=== PATIENT | female | born 1990 | race Caucasian/White ===

== ENCOUNTER 2020-01-19 12:02 | Inpatient (IN) ==
[2020-01-19] MEDS ORDERED: OXYTOCIN 30 UNITS/500 ML BAG IV PRN ×3 (12:21→21:57)
[2020-01-19 12:41] LABS: Hematocrit (blood only) 34.5 % (37-47); Hemoglobin 11.8 g/dL (12.0-16.0); Mean Corpuscular Hemoglobin 29.7 pg (25-34); Mean Corpuscular Volume 86.9 fL (80-100); Mean Platelet Volume 12.2 fL (7.4-10.4); Platelet Count 192 K/uL (130-400); RDW Coefficient of Variation 13.8 % (11.5-14.5); RDW Standard Deviation 43.6 fL (36.4-46.3); Red Blood Count 3.97 M/uL (4.2-5.4); White Blood Count 9.13 K/uL (4.8-10.8)
--- NOTE | 2020-01-19 12:46 | History & Physical Report ---
Date of Service January 19, 2020 Assessment & Plan (1) with history of infertility, antepartum: - heart rate tracing category 2 with moderate variability and accelerations -Rupture of membranes but no uterine activity -Discussed with patient and recommend Pitocin augmentation for rupture of membranes -Pitocin per induction protocol -Anticipate vaginal delivery Admission and Anticipated Discharge Date Admission Date: January 19, 2020 History of Present Illness Chief Complaint: Rupture of membranes Primary Care Provider: Elise Cordero DO The patient is a 29-year-old 1 para 0, EDC of 19 January, at 39+ weeks gestational age, who presents to labor and delivery with spontaneous rupture of membranes. Patient states the membranes ruptured at approximately 0900 hrs. She describes the fluid is light green. She denies contractions. The patient carries a diagnosis of heterozygous factor V Leiden mutation. She had a hematology consult this . Hematology is recommending Lovenox for approximately 2 weeks, longer if the patient has a section. Otherwise the patient has had a benign course. Her blood type is A+, antibody negative, rubella immune, hepatitis B negative, she had a negative cystic fibrosis and SMA screen, negative cell free DNA screen, normal 1 hour Glucola x2, negative third trimester beta strep culture, and a negative COVID screen on 06 January Allergies Allergy/AdvReac Type Severity Reaction Status Date / Time No Known Allergies Allergy Verified 01/13/20 13:40 Home Medications Home Medications Medication Instructions Recorded Confirmed Type prenat.vits,dragan,eix-tayt-zeyax 1 tab PO DAILY 06/18/19 01/19/20 History aspirin 81 mg PO DAILY 01/19/20 01/19/20 History cetirizine [Zyrtec] 10 mg PO DAILY 01/19/20 01/19/20 History diphenhydramine HCl [Benadryl] 25 mg PO ONCE 01/19/20 01/19/20 History Patient History Medical History (Updated 01/04/20 @ 07:43 by Gualberto Ortiz Jr, MD, FACOG) Varicella Family History (Updated 06/18/19 @ 09:33 by Brii Craven) Father Factor V Leiden Brother Factor V Leiden Grandmother (Maternal) Breast cancer Social History (Updated 06/18/19 @ 09:07 by Brii Craven) Smoking Status: Never smoker Hx Alcohol Use: No Hx Substance Use: No Preferred Language: Romanian Communication Ability: Effective 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 Other Information That Helps Us Care for You: No Feels Safe at Home: Yes Safety Concerns: Feels Safe At This Time Physical Exam Constitutional: WD/WN, vitals as above Respiratory: Auscultation: lungs clear to auscultation bilaterally Cardiovascular: RRR, no murmur, no edema Extremities: no calf tenderness Gastrointestinal (Abdomen): Gravid, vertex, positive heart tones, estimated weight of 7-1/2 pounds Genitourinary: Cervix 3 to 4 cm dilated 80% effaced -2 station, fore bag ruptured for light meconium, intrauterine pressure catheter placed Results & Data ([facility]) Vital Signs (Past 12 Hours) Vital Signs Temp Pulse Resp BP 01/19/20 12:18 97.9 F 20 01/19/20 12:11 60 133/77 Coding Level of Care Code None Diagnoses with history of infertility, antepartum O09.00
[2020-01-19 12:58] LABS: Mean Corpuscular Hgb Conc 34.2 g/dL (32-36)
[2020-01-19] MEDS: LACTATED RINGER'S 1,000 ML IV PRN ×3 (13:10→19:45)
[2020-01-19] MEDS ORDERED: fentaNYL citrate 100 MCG/2 ML VIAL ONE ×2 (14:25→21:12)
[2020-01-19] MEDS ORDERED: BUPIVACAINE 0.25% 30 ML VIAL ONE (14:25)
[2020-01-19] MEDS ORDERED: ePHEDrine sulfate 50 MG/ML AMP ONE (14:25)
[2020-01-19] MEDS ORDERED: fentaNYL 2MCG/ML ROPIV 1.25MG/ML 100 ML BAG EPI ONE (14:26)
[2020-01-19] MEDS ORDERED: fentaNYL 2MCG/ML ROPIV 1.25MG/ML 100 ML BAG EPI PRN (14:29)
[2020-01-19] MEDS ORDERED: DiphenhydrAMINE HCL 50 MG/ML VIAL IV PRN (14:29)
[2020-01-19] MEDS ORDERED: ePHEDrine sulfate 50 MG/ML AMP IV PRN ×2 (14:29→21:25)
[2020-01-19] MEDS ORDERED: NALOXONE HCL 0.4 MG/1 ML VIAL/CARP IV PRN (14:29)
[2020-01-19] MEDS ORDERED: ONDANSETRON INJ 2 MG/ML 2 ML VIAL IV PRN (14:29)
[2020-01-19] MEDS ORDERED: NALOXONE HCL 1 MG in SODIUM CHLORIDE 0.9% 1000ML 1,000 ML IV PRN (14:29)
--- NOTE | 2020-01-19 14:29 | Anesthesiology Consultation ---
Date of Service January 19, 2020 Assessment & Plan ASA ASA2 Proposed Anesthesia Anesthesia Type: Labor Epidural Risk / Benefits Reviewed With: PT / POA / Parent / Guardian, Accepts Plan and Informed Consent Obtained History Height/Weight Height: 5 ft 8 in Weight: 105.233 kg Allergies Allergy/AdvReac Type Severity Reaction Status Date / Time No Known Allergies Allergy Verified 01/13/20 13:40 Medications Home Medications Medication Instructions Recorded Confirmed Last Taken prenat.vits,dragan,qly-dyfx-trpkd 1 tab PO DAILY 06/18/19 01/19/20 01/18/20 aspirin 81 mg PO DAILY 01/19/20 01/19/20 01/18/20 cetirizine [Zyrtec] 10 mg PO DAILY 01/19/20 01/19/20 01/18/20 diphenhydramine HCl [Benadryl] 25 mg PO ONCE 01/19/20 01/19/20 01/18/20 Active Medications Generic Name Dose Route Start Last Admin Trade Name Freq PRN Reason Stop Dose Admin Lactated Ringer's 1,000 mls @ 125 mls/hr 01/19/20 12:21 01/19/20 15:07 Lr IV 01/21/20 12:20 125 mls/hr .Q8H PRN Infusion L&D Protocol Protocol Oxytocin 30 units in 500 mls @ 3 mls/hr 01/19/20 13:00 01/19/20 14:25 Pitocin IV 01/21/20 12:59 0.18 units/hr .Q24H PRN 3 mls/hr Labor Induction/Augmentation Titration Protocol 0.18 UNITS/HR Past Medical History Medical History Varicella Exercise / Class Metabolic Activity II 4-5 Yardwork/Stairs/Walk up hill Past Family History Family History Father Factor V Leiden Brother Factor V Leiden Grandmother (Maternal) Breast cancer Past Anesthesia History No Hx of Anesthesia Complications and No Family Hx of Anesthesia Complications History of PONV No Hx of PONV and No Hx of Motion Sickness Social History Smoking Status: Never smoker Hx Alcohol Use: No Hx Substance Use: No Review of Systems denies fever/cough/ colds/ chest pain/ SOB/ CR Constitutional: no fever and no chills Respiratory: no cough and no dyspnea denies CR Cardiovascular: no chest pain and no dyspnea on exertion Physical Exam Vital Signs Last Vital Signs Temp 36.6 C 01/19/20 12:18 Pulse 73 01/19/20 15:06 Resp 18 01/19/20 13:13 BP 130/68 01/19/20 15:06 Pulse Ox 100 01/19/20 15:01 ENMT Mouth: no TMJ abnormality and no dentition abnormality Thyromental Distance: > or= 3.5 Finger Breadths Mallampati Class: II Neck neck extension not limited Respiratory normal respiratory effort; no respiratory distress Auscultation: lungs clear to auscultation bilaterally Cardiovascular Rate/Rhythm: regular rate and regular rhythm Neurologic moves all extremities Psychiatric Orientation: alert and oriented x 3 Testing Laboratory Results 01/19/20 12:28
[2020-01-19] MEDS ORDERED: ACETAMINOPHEN 500 MG TAB PO PRN (15:45)
--- NOTE | 2020-01-19 17:01 | Labor Progress Brief Note ---
Date of Service January 19, 2020 Subjective Reason For Note: Routine Evaluation Assessment & Plan (1) with history of infertility, antepartum: - tracing Cat II - comfortable with epidural - continue pitocin Admission and Anticipated Discharge Date Admission Date: January 19, 2020 Physical Exam Genitourinary: Cervix: Ant lip/(+)1 Results & Data ([facility]) Vital Signs (Past 12 Hours) Vital Signs Temp Pulse Resp BP Pulse Ox 01/19/20 16:56 81 100 01/19/20 16:53 74 113/57 L 01/19/20 16:51 79 99 01/19/20 16:46 78 99 01/19/20 16:41 78 100 01/19/20 16:39 78 112/59 L 01/19/20 16:36 78 100 01/19/20 16:31 85 100 01/19/20 16:26 79 100 01/19/20 16:24 80 119/57 L 01/19/20 16:21 95 H 100 01/19/20 16:16 69 122/69 97 01/19/20 16:11 72 124/69 100 01/19/20 16:06 61 120/65 100 01/19/20 16:02 70 113/67 01/19/20 16:01 79 100 01/19/20 16:00 20 01/19/20 15:56 68 113/71 100 01/19/20 15:52 79 124/76 01/19/20 15:51 80 100 01/19/20 15:46 71 117/65 100 01/19/20 15:42 82 117/73 01/19/20 15:41 86 100 01/19/20 15:36 74 126/64 100 01/19/20 15:31 69 121/67 100 01/19/20 15:30 98.4 F 20 01/19/20 15:26 68 100 01/19/20 15:25 74 117/70 01/19/20 15:21 80 117/66 99 01/19/20 15:16 77 122/64 100 01/19/20 15:11 83 100 01/19/20 15:10 76 133/63 01/19/20 15:08 65 125/62 01/19/20 15:06 77 130/68 100 01/19/20 15:04 71 128/66 01/19/20 15:02 79 136/68 01/19/20 15:01 72 100 01/19/20 15:00 68 143/69 H 01/19/20 14:56 69 147/72 H 100 01/19/20 14:51 62 100 01/19/20 14:46 82 100 01/19/20 14:41 71 100 01/19/20 14:36 59 L 170/81 H 100 01/19/20 13:13 55 L 18 118/71 01/19/20 12:18 97.9 F 20 01/19/20 12:11 60 133/77 Coding Level of Care Code None Diagnoses with history of infertility, antepartum O09.00
--- NOTE | 2020-01-19 17:51 | Labor Progress Brief Note ---
Date of Service January 19, 2020 Subjective Reason For Note: Routine Evaluation Assessment & Plan (1) with history of infertility, antepartum: - tracing Cat II - begin 2nd stage Admission and Anticipated Discharge Date Admission Date: January 19, 2020 Physical Exam Genitourinary: Cervix: complete/(+)1 -(+)2 Results & Data ([facility]) Vital Signs (Past 12 Hours) Vital Signs Temp Pulse Resp BP Pulse Ox 01/19/20 17:46 73 100 01/19/20 17:41 75 100 01/19/20 17:38 68 142/69 H 01/19/20 17:36 70 100 01/19/20 17:31 76 100 01/19/20 17:30 20 01/19/20 17:26 84 99 01/19/20 17:23 69 133/70 01/19/20 17:21 80 100 01/19/20 17:16 75 100 01/19/20 17:11 78 100 01/19/20 17:08 75 155/69 H 01/19/20 17:06 79 100 01/19/20 17:01 98.4 F 84 20 100 01/19/20 16:56 81 100 01/19/20 16:53 74 113/57 L 01/19/20 16:51 79 99 01/19/20 16:46 78 99 01/19/20 16:41 78 100 01/19/20 16:39 78 112/59 L 01/19/20 16:36 78 100 01/19/20 16:31 85 100 01/19/20 16:26 79 100 01/19/20 16:24 80 119/57 L 01/19/20 16:21 95 H 100 01/19/20 16:16 69 122/69 97 01/19/20 16:11 72 124/69 100 01/19/20 16:06 61 120/65 100 01/19/20 16:02 70 113/67 01/19/20 16:01 79 100 01/19/20 16:00 20 01/19/20 15:56 68 113/71 100 01/19/20 15:52 79 124/76 01/19/20 15:51 80 100 01/19/20 15:46 71 117/65 100 01/19/20 15:42 82 117/73 01/19/20 15:41 86 100 01/19/20 15:36 74 126/64 100 01/19/20 15:31 69 121/67 100 01/19/20 15:30 98.4 F 20 01/19/20 15:26 68 100 01/19/20 15:25 74 117/70 01/19/20 15:21 80 117/66 99 01/19/20 15:16 77 122/64 100 01/19/20 15:11 83 100 01/19/20 15:10 76 133/63 01/19/20 15:08 65 125/62 01/19/20 15:06 77 130/68 100 01/19/20 15:04 71 128/66 01/19/20 15:02 79 136/68 01/19/20 15:01 72 100 01/19/20 15:00 68 143/69 H 01/19/20 14:56 69 147/72 H 100 01/19/20 14:51 62 100 01/19/20 14:46 82 100 01/19/20 14:41 71 100 01/19/20 14:36 59 L 170/81 H 100 01/19/20 13:13 55 L 18 118/71 01/19/20 12:18 97.9 F 20 01/19/20 12:11 60 133/77 Coding Level of Care Code None Diagnoses with history of infertility, antepartum O09.00
--- NOTE | 2020-01-19 20:11 | Labor Progress Brief Note ---
Date of Service January 19, 2020 Subjective Reason For Note: Routine Evaluation Assessment & Plan (1) with history of infertility, antepartum: - tracing Cat II - pt getting tired - discussed Operative Vag options - with caput not a vacuum candidate - discussed outlet forceps options - pt would like to continue pushing Admission and Anticipated Discharge Date Admission Date: January 19, 2020 Physical Exam Genitourinary: Cervix: complete/(+)2/BONG Results & Data ([facility]) Vital Signs (Past 12 Hours) Vital Signs Temp Pulse Pulse Resp BP BP Pulse Ox 01/19/20 20:06 117 H 96 01/19/20 20:01 83 98 01/19/20 20:00 18 01/19/20 19:57 92 H 87 L 01/19/20 19:56 91 H 97 01/19/20 19:51 76 97 01/19/20 19:46 94 H 98 01/19/20 19:41 91 H 98 01/19/20 19:39 73 116/58 L 01/19/20 19:36 78 97 01/19/20 19:31 83 96 01/19/20 19:30 18 01/19/20 19:28 92 H 94 01/19/20 19:26 92 H 96 01/19/20 19:23 73 128/58 L 01/19/20 19:21 73 97 01/19/20 19:16 75 98 01/19/20 19:11 97 H 98 01/19/20 19:08 76 127/68 01/19/20 19:06 78 98 01/19/20 19:02 99.7 F H 75 18 122/82 99 01/19/20 19:01 99 H 99 01/19/20 18:56 75 99 01/19/20 18:53 78 122/82 01/19/20 18:51 96 H 98 01/19/20 18:46 77 99 01/19/20 18:45 20 01/19/20 18:41 109 H 97 01/19/20 18:39 93 H 141/73 H 01/19/20 18:36 91 H 98 01/19/20 18:31 89 99 01/19/20 18:26 67 99 01/19/20 18:24 75 126/58 L 01/19/20 18:21 79 100 01/19/20 18:20 98.4 F 20 08/19/20 18:16 84 100 01/19/20 18:11 118 H 98 01/19/20 18:08 118 H 128/64 01/19/20 18:06 82 100 01/19/20 18:01 80 100 20 17:56 77 100 01/19/20 17:54 82 136/93 01/19/20 17:51 89 100 01/19/20 17:46 73 20 100 01/19/20 17:41 75 100 01/19/20 17:38 68 142/69 H 01/19/20 17:36 70 100 01/19/20 17:31 76 100 01/19/20 17:30 20 01/19/20 17:26 84 99 01/19/20 17:23 69 133/70 01/19/20 17:21 80 100 01/19/20 17:16 75 100 01/19/20 17:11 78 100 01/19/20 17:08 75 155/69 H 01/19/20 17:06 79 100 01/19/20 17:01 98.4 F 84 20 100 01/19/20 16:56 81 100 01/19/20 16:53 74 113/57 L 01/19/20 16:51 79 99 01/19/20 16:46 78 99 01/19/20 16:41 78 100 01/19/20 16:39 78 112/59 L 01/19/20 16:36 78 100 01/19/20 16:31 85 100 01/19/20 16:26 79 100 01/19/20 16:24 80 119/57 L 01/19/20 16:21 95 H 100 01/19/20 16:16 69 122/69 97 01/19/20 16:11 72 124/69 100 01/19/20 16:06 61 120/65 100 01/19/20 16:02 70 113/67 01/19/20 16:01 79 100 01/19/20 16:00 20 01/19/20 15:56 68 113/71 100 01/19/20 15:52 79 124/76 20 15:51 80 100 20 15:46 71 117/65 100 20 15:42 82 117/73 01/19/20 15:41 86 100 01/19/20 15:36 74 126/64 100 01/19/20 15:31 69 121/67 100 01/19/20 15:30 98.4 F 20 01/19/20 15:26 68 100 01/19/20 15:25 74 117/70 01/19/20 15:21 80 117/66 99 01/19/20 15:16 77 122/64 100 01/19/20 15:11 83 100 01/19/20 15:10 76 133/63 01/19/20 15:08 65 125/62 01/19/20 15:06 77 130/68 100 01/19/20 15:04 71 128/66 01/19/20 15:02 79 136/68 01/19/20 15:01 72 100 01/19/20 15:00 68 143/69 H 01/19/20 14:56 69 147/72 H 100 01/19/20 14:51 62 100 01/19/20 14:46 82 100 01/19/20 14:41 71 100 01/19/20 14:36 59 L 170/81 H 100 01/19/20 13:13 55 L 18 118/71 01/19/20 12:18 97.9 F 20 01/19/20 12:11 60 133/77 Coding Level of Care Code None Diagnoses with history of infertility, antepartum O09.00
[2020-01-19] MEDS ORDERED: LIDOCAINE/EPINEPHRINE 2% 1:200,000 20 ML SDV ONE (21:17)
[2020-01-19 21:19] LABS: Base Excess Cord Arterial Bld -5.2 mEq/L (-9-1.8); CO2 Cord Arterial Blood 42 mmHg (39.1-73.5); HCO3 Cord Arterial Blood 21 mmol/L (19.7-28.5); PO2 Cord Arterial Blood 27 mmHg (4.1-31.7); pH Cord Arterial Blood 7.31 (7.1-7.38)
[2020-01-19 21:20] LABS: Oxygen Sat Cord Arterial Blood < 60.0 % (<60)
[2020-01-19 21:24] LABS: Base Excess Cord Venous Blood -5.5 mEq/L (-7.7-1.9); Cord Venous Blood HCO3 20 mmol/L (18.4-26.8); Cord Venous Blood PCO2 41 mmHg (30.4-57.2); Cord Venous Blood PO2 27 mmHg (14.1-43.3); Cord Venous Blood pH 7.32 (7.20-7.44); O2 Saturation Cord Venous Bld < 60.0 % (<68)
[2020-01-19] MEDS ORDERED: fentaNYL citrate 100 MCG/2 ML VIAL IV PRN (21:25)
[2020-01-19] MEDS ORDERED: ATROPINE SULFATE 0.1 MG/ML 10ML SYR IV PRN (21:25)
--- NOTE | 2020-01-19 21:35 | Post Operative Brief Note ---
PG Immediate Post Op with CF Date of Surgery January 19, 2020 Pre & Post Diagnosis Operation Date: 01/19/20 21:05 Pre-Op Diagnosis: Vaginal Laceration status post forcep delivery Post-Op Diagnosis: Same as above I identified the patient and participated in the time-out.: Yes Procedure Operation Date: 01/19/20 21:05 1. Right sulcus repair 2. Repair of 2 degree midline laceration <No data on this case meets the specified criteria> Surgeon Gualberto Ortiz Jr, MD, FACOG Trip Rider Ema Estimated Blood Loss 200 Findings See Below (right sulcus tear, with midline 2nd degree laceration, both repaires) Drains Nguyễn Catheter (patent and draining )
--- NOTE | 2020-01-19 21:49 | Delivery Summary ---
Vaginal Delivery Summary Date of Service January 19, 2020 Vaginal Delivery Summary Viable Findings: viable male with Apgars of 8 and 9, delivered by low forcep delivery for maternal exhaustion. Baby delivered over a midline second- degree laceration with right vaginal sulcus tear. Cord blood samples and cord gases obtained. Attempt at repairing sulcus tear in delivery necessitatingroom unsuccessful secondary to visualization transfer to OR for closure. Labor Course: The patient is a 29-year-old 1 para 0, EDC of 19 January, at 39+ weeks gestational age, who presents to labor and delivery with spontaneous rupture of membranes. Patient states the membranes ruptured at approximately 0900 hrs. She describes the fluid is light green. She denies contractions. The patient carries a diagnosis of heterozygous factor V Leiden mutation. She had a hematology consult this . Hematology is recommending Lovenox for approximately 2 weeks, longer if the patient has a section. Otherwise the patient has had a benign course. Her blood type is A+, antibody negative, rubella immune, hepatitis B negative, she had a negative cystic fibrosis and SMA screen, negative cell free DNA screen, normal 1 hour Glucola x2, negative third trimester beta strep culture, and a negative COVID screen on 06 January Upon admission the patient was 3 cm dilated and grossly ruptured. On examination a fore bag was felt which was artificial initially ruptured and an intrauterine pressure catheter was placed. Because of the rupture of membranes she was started on Pitocin per induction protocol. Contractions became regular and the patient became uncomfortable. Anesthesia was consulted and an epidural was placed. The patient progressed to full dilatation and began her second stage. The patient pushed over 2 hours bringing the vertex down to a +2/+3 position in a BONG presentation. At this point the patient became exhausted and was unable to push further. Because of the significant It associated with the second stage a vacuum extraction was not felt to be possible. Verbal consent was obtained from the patient for a forcep delivery. Juanis forceps were placed atraumatic Jose, and with the next contraction the baby was delivered. The cord was clamped and cut and the baby was taken over to the resuscitation stand. Cord gases and cord blood samples were obtained. Inspection of the perineum showed a midline second-degree laceration with a right sulcus tear. A Nguyễn catheter was inserted into the bladder which remained there throughout the repair. An attempt to repair the sulcus tear was tried in the delivery room. Because of the location of the tear good visualization could not be obtained. After multiple attempts I decision was made to terminate the procedure in the delivery room and moved the patient to the OR for repair there. Estimated blood loss for this portion of the delivery 750 cc. Sponge and needle count was correct.
[2020-01-19] MEDS: LACTATED RINGER'S 1,000 ML IV SCH (21:50)
[2020-01-19] MEDS ORDERED: ACETAMINOPHEN 325 MG TAB PO PRN (21:57)
[2020-01-19] MEDS ORDERED: HYDROCORTISONE ACETATE 25 MG SUPP PR PRN (21:57)
[2020-01-19] MEDS ORDERED: SUPERCREAM 0.870% 15 GM JAR EXT PRN (21:57)
[2020-01-19] MEDS ORDERED: ACETAMINOPHEN W/CODEINE #3 1 TAB PO PRN (21:57)
[2020-01-19] MEDS ORDERED: BENZOCAINE 20% AER SPR 82.5 GM CAN EXT PRN (21:57)
[2020-01-19] MEDS ORDERED: DIPHTHERIA/TETANUS/PERTUSSIS 0.5 ML SYR/VIAL IM ONE (21:57)
[2020-01-19 22:13] LABS: Hematocrit (blood only) 26.8 % (37-47); Hemoglobin 9.1 g/dL (12.0-16.0)
--- NOTE | 2020-01-19 22:36 | Anesthesia Procedure Note ---
Date of Service January 19, 2020 Anesthesia Post Epidural Note Vital Signs Vital Signs: Temp Pulse Resp BP Pulse Ox 98.4 F 114 H 18 121/69 100 01/19/20 21:50 01/19/20 22:34 01/19/20 22:10 01/19/20 22:34 01/19/20 22:32 Notes Mental Status: alert / awake / arousable and participated in evaluation Nausea / Vomiting: adequately controlled Pain: adequately controlled Airway Patency, RR, SpO2: stable & adequate BP & HR: stable & adequate Hydration State: stable & adequate Neuraxial Anesthesia: was administered and sensory block is resolving Anesthetic Complications: no major complications apparent and Pt Satisfied with anesthetic care Epidural: Removed without complications and With tip intact
--- NOTE | 2020-01-19 22:37 | Anesthesiology Progress Note ---
Date of Service January 19, 2020 Anesthesia Post Procedure Vital Signs Vital Signs: Temp Pulse Pulse Resp BP BP Pulse Ox 01/19/20 22:34 114 H 121/69 01/19/20 22:32 119 H 100 01/19/20 22:27 108 H 100 01/19/20 22:24 121 H 128/75 01/19/20 22:22 124 H 100 01/19/20 22:17 120 H 100 01/19/20 22:13 107 H 108/65 01/19/20 22:12 114 H 100 01/19/20 22:10 18 01/19/20 22:07 116 H 99 01/19/20 22:02 112 H 100 01/19/20 22:00 18 01/19/20 21:57 105 H 100 01/19/20 21:52 111 H 89/49 L 99 01/19/20 21:50 98.4 F 18 01/19/20 21:47 99 H 98 01/19/20 21:46 98 H 80/41 L 01/19/20 21:45 98 H 78/41 L 01/19/20 20:51 123 H 117/65 01/19/20 20:21 91 H 98 01/19/20 20:16 87 97 01/19/20 20:11 85 97 01/19/20 20:09 78 118/57 L 01/19/20 20:06 117 H 96 01/19/20 20:01 83 98 01/19/20 20:00 18 01/19/20 19:57 92 H 87 L 01/19/20 19:56 91 H 97 01/19/20 19:51 76 97 01/19/20 19:46 94 H 98 01/19/20 19:41 91 H 98 01/19/20 19:39 73 116/58 L 01/19/20 19:36 78 97 01/19/20 19:31 83 96 01/19/20 19:30 18 01/19/20 19:28 92 H 94 01/19/20 19:26 92 H 96 01/19/20 19:23 73 128/58 L 01/19/20 19:21 73 97 01/19/20 19:16 75 98 01/19/20 19:11 97 H 98 01/19/20 19:08 76 127/68 01/19/20 19:06 78 98 08/19/20 19:02 99.7 F H 75 18 122/82 99 01/19/20 19:01 99 H 99 01/19/20 18:56 75 99 01/19/20 18:53 78 122/82 01/19/20 18:51 96 H 98 01/19/20 18:46 77 99 01/19/20 18:45 20 01/19/20 18:41 109 H 97 01/19/20 18:39 93 H 141/73 H 01/19/20 18:36 91 H 98 01/19/20 18:31 89 99 01/19/20 18:26 67 99 01/19/20 18:24 75 126/58 L 01/19/20 18:21 79 100 01/19/20 18:20 98.4 F 20 01/19/20 18:16 84 100 01/19/20 18:11 118 H 98 01/19/20 18:08 118 H 128/64 01/19/20 18:06 82 100 01/19/20 18:01 80 100 01/19/20 17:56 77 100 01/19/20 17:54 82 136/93 01/19/20 17:51 89 100 01/19/20 17:46 73 20 100 01/19/20 17:41 75 100 01/19/20 17:38 68 142/69 H 01/19/20 17:36 70 100 01/19/20 17:31 76 100 01/19/20 17:30 20 01/19/20 17:26 84 99 01/19/20 17:23 69 133/70 01/19/20 17:21 80 100 01/19/20 17:16 75 100 20 17:11 78 100 01/19/20 17:08 75 155/69 H 01/19/20 17:06 79 100 01/19/20 17:01 98.4 F 84 20 100 01/19/20 16:56 81 100 20 16:53 74 113/57 L 01/19/20 16:51 79 99 01/19/20 16:46 78 99 20 16:41 78 100 01/19/20 16:39 78 112/59 L 01/19/20 16:36 78 100 01/19/20 16:31 85 100 01/19/20 16:26 79 100 01/19/20 16:24 80 119/57 L 01/19/20 16:21 95 H 100 01/19/20 16:16 69 122/69 97 01/19/20 16:11 72 124/69 100 01/19/20 16:06 61 120/65 100 01/19/20 16:02 70 113/67 01/19/20 16:01 79 100 01/19/20 16:00 20 01/19/20 15:56 68 113/71 100 01/19/20 15:52 79 124/76 01/19/20 15:51 80 100 01/19/20 15:46 71 117/65 100 01/19/20 15:42 82 117/73 01/19/20 15:41 86 100 01/19/20 15:36 74 126/64 100 01/19/20 15:31 69 121/67 100 01/19/20 15:30 98.4 F 20 01/19/20 15:26 68 100 01/19/20 15:25 74 117/70 01/19/20 15:21 80 117/66 99 01/19/20 15:16 77 122/64 100 01/19/20 15:11 83 100 01/19/20 15:10 76 133/63 01/19/20 15:08 65 125/62 01/19/20 15:06 77 130/68 100 01/19/20 15:04 71 128/66 01/19/20 15:02 79 136/68 01/19/20 15:01 72 100 01/19/20 15:00 68 143/69 H 01/19/20 14:56 69 147/72 H 100 01/19/20 14:51 62 100 01/19/20 14:46 82 100 01/19/20 14:41 71 100 01/19/20 14:36 59 L 170/81 H 100 01/19/20 13:13 55 L 18 118/71 01/19/20 12:18 97.9 F 20 01/19/20 12:11 60 133/77 Transfer of Care Handoff Completed per policy Notes Mental Status: alert / awake / arousable and participated in evaluation Nausea / Vomiting: adequately controlled Pain: adequately controlled Airway Patency, RR, SpO2: stable & adequate BP & HR: stable & adequate Hydration State: stable & adequate Neuraxial Anesthesia: was administered and sensory block is resolving Anesthetic Complications: no major complications apparent and Pt Satisfied with anesthetic care
[2020-01-19] MEDS: IBUPROFEN 600 MG TAB PO PRN (23:08)
--- NOTE | 2020-01-20 02:00 | Operative Report (OR) ---
DATE OF OPERATION: 01/19/2020 PREOPERATIVE DIAGNOSIS: Vaginal laceration, status post forceps delivery. POSTOPERATIVE DIAGNOSES: Vaginal laceration, status post forceps delivery. PROCEDURES PERFORMED: 1. Repair of right sulcus tear. 2. Repair of midline second-degree laceration. SURGEON: Gualberto Ortiz MD ETH[employer] MAINTENANCE MECHANIC: Dr. Haley Boo. ANESTHESIA: Epidural. FINDINGS: Exam under anesthesia revealed a sulcus tear extending up to the right upper fornix lateral to the cervix. This was repaired with a running 2-0 Vicryl suture. Midline laceration was repaired with 4-0 and 2-0 Vicryl. Estimated blood loss 200 mL. PROCEDURE NOTE: The patient was taken to the operating room and under epidural anesthesia, was placed in the dorsal lithotomy position. Nguyễn catheter was already present in the bladder and the vulva was prepped with Betadine. Using retractors, the sulcus tear was visualized. The apex was identified and it was ligated with a 2-0 Vicryl suture. This was then run down to the vaginal introitus closing the defect. The midline second-degree laceration was then repaired with 2-0 and 4-0 Vicryl closing the defect. Vaginal packing was placed. The patient was taken out of dorsal lithotomy and to recovery room in satisfactory condition. I attest to the content of the Intraoperative Record and any orders documented therein. Any exception s are noted below.
[2020-01-20] MEDS: IBUPROFEN 600 MG TAB PO PRN ×4 (04:45→20:40)
[2020-01-20 05:48] LABS: Hematocrit (blood only) 24.6 % (37-47); Hemoglobin 8.4 g/dL (12.0-16.0); Mean Corpuscular Hemoglobin 30.4 pg (25-34); Mean Corpuscular Hgb Conc 34.1 g/dL (32-36); Mean Corpuscular Volume 89.1 fL (80-100); Platelet Count 166 K/uL (130-400); RDW Coefficient of Variation 13.9 % (11.5-14.5); RDW Standard Deviation 45.7 fL (36.4-46.3); Red Blood Count 2.76 M/uL (4.2-5.4); White Blood Count 23.25 K/uL (4.8-10.8)
[2020-01-20] MEDS: LACTATED RINGER'S 1,000 ML IV SCH (06:17)
--- NOTE | 2020-01-20 06:55 | Obstetrical Progress Note ---
Date of Service <Yolanda Montalvo DO - Last Filed: 01/20/20 07:57> January 20, 2020 Assessment & Plan <Yolanda Montalvo DO - Last Filed: 01/20/20 07:57> (1) Normal course: - PNL: Rh pos, RI, GBS neg, COVID neg - Feels well today. - Pain well controlled with ibuprofen 600mg Q4H PRN - Routine pp care -- OOB, ambulation, diet progression as tolerated - H/H 8.4/24.6 today. Will plan to start Iron po daily - After discharge will have 6 week follow-up with Dr. Ortiz. (2) Factor 5 Leiden mutation, heterozygous: Lovenox x2 weeks pp as recommended by hematology. Subjective <Yolanda Montalvo DO - Last Filed: 01/20/20 07:57> Amy Schmitt is a 29 y/o female who is PPD #1 following forceps assisted vaginal delivery due to maternal exhaustion during 2nd stage of labor at 39+ weeks. She reports feeling well overall this morning. Some abdominal cramping, described as a discomfort sensation, and 4/10 pain well managed on analgesics. Pt still has a urinary catheter in place. Tolerating meals overnight without nausea or vomiting. Patient has not yet been OOB. + passing gas and - bowel movement. Pt has packing in place in the vagina due to sulcus tear s/p forceps delivery. She is currently . To note: patient has Factor V Leiden and it has been recommended that she be on Lovenox x2 weeks pp per hematology. Review of Systems Denies fever or chills. Denies shortness of breath or cough. Denies chest pain. Denies breast pain. Denies dysuria. Denies leg pain or leg swelling. Denies headache or changes in vision. Physical Exam <Yolanda Montalvo DO - Last Filed: 01/20/20 07:57> General: Alert, oriented. No acute distress. Cardiac: Regular rate and rhythm. No murmurs. Respiratory: Clear to auscultation bilaterally a/p, no wheezes/rales/rhonchi. No increased work of breathing. Symmetrical chest rise. No respiratory distress. Abdomen: Soft, nontender, nondistended. Bowel sounds present. : Urinary catheter in place. Uterus: Uterine fundus firm, palpable 2 cm below umbilicus. Lower Extremities: SCDs in place. No lower extremity edema or swelling. No deep calf pain. Louisa's negative bilaterally. Results & Data ([facility]) <Yolanda Montalvo DO - Last Filed: 01/20/20 07:57> Vital Signs (Past 12 Hours) Vital Signs Temp Pulse Pulse Resp BP BP Pulse Ox 01/20/20 04:45 36.6 C 75 15 117/76 99 01/20/20 00:35 36.9 C 92 H 16 108/72 99 01/19/20 23:58 94 H 115/63 01/19/20 23:57 96 H 99 01/19/20 23:52 115 H 98 01/19/20 23:50 18 01/19/20 23:47 103 H 99 01/19/20 23:42 112 H 99 01/19/20 23:37 110 H 99 01/19/20 23:32 111 H 99 01/19/20 23:27 89 99 01/19/20 23:22 110 H 100 01/19/20 23:20 18 01/19/20 23:17 113 H 99 01/19/20 23:12 115 H 98 01/19/20 23:07 108 H 98 01/19/20 23:02 111 H 100 01/19/20 22:57 113 H 100 01/19/20 22:54 107 H 116/66 01/19/20 22:52 104 H 100 01/19/20 22:50 18 01/19/20 22:47 111 H 100 01/19/20 22:44 103 H 123/67 01/19/20 22:42 96 H 100 01/19/20 22:40 18 01/19/20 22:37 119 H 100 01/19/20 22:34 114 H 121/69 01/19/20 22:32 119 H 100 01/19/20 22:30 18 01/19/20 22:27 108 H 100 01/19/20 22:24 121 H 128/75 01/19/20 22:22 124 H 100 01/19/20 22:20 18 01/19/20 22:17 120 H 100 01/19/20 22:13 107 H 108/65 01/19/20 22:12 114 H 100 01/19/20 22:10 18 01/19/20 22:07 116 H 99 01/19/20 22:02 112 H 100 01/19/20 22:00 18 01/19/20 21:57 105 H 100 01/19/20 21:52 111 H 89/49 L 99 01/19/20 21:50 36.9 C 18 01/19/20 21:47 99 H 98 01/19/20 21:46 98 H 80/41 L 01/19/20 21:45 98 H 78/41 L 01/19/20 20:51 123 H 117/65 01/19/20 20:21 91 H 98 01/19/20 20:16 87 97 01/19/20 20:11 85 97 01/19/20 20:09 78 118/57 L 01/19/20 20:06 117 H 96 01/19/20 20:01 83 98 01/19/20 20:00 18 01/19/20 19:57 92 H 87 L 01/19/20 19:56 91 H 97 01/19/20 19:51 76 97 01/19/20 19:46 94 H 98 01/19/20 19:41 91 H 98 01/19/20 19:39 73 116/58 L 01/19/20 19:36 78 97 01/19/20 19:31 83 96 01/19/20 19:30 18 01/19/20 19:28 92 H 94 01/19/20 19:26 92 H 96 01/19/20 19:23 73 128/58 L 01/19/20 19:21 73 97 01/19/20 19:16 75 98 01/19/20 19:11 97 H 98 01/19/20 19:08 76 127/68 01/19/20 19:06 78 98 01/19/20 19:02 37.6 C H 75 18 122/82 99 01/19/20 19:01 99 H 99 01/19/20 18:56 75 99 01/19/20 18:53 78 122/82 01/19/20 18:51 96 H 98 Laboratory Results H/H 8.4/24.6 at 0527 this AM. <Gualberto Ortiz Jr, MD, FACOG - Last Filed: 01/20/20 08:18> Co-Signing Physician Notes Resident Physician Supervision Note: I was present with Dr. Montalvo during the history and exam. I discussed the case with the resident and agree with the findings and plan as documented in the note. Any exceptions or clarifications are listed here: Reviewed delivery and repair with patient. Packing removed and will d/c Nguyễn. VSS, H/H stable and will begin ambulation. Will start Lovenox per Hematology for Factor V Leiden heterozygous Documented By: Gualberto Ortiz Jr, MD, FACOG
[2020-01-20] MEDS: PRENATAL VITAMIN 1 TAB PO SCH (08:47)
[2020-01-20] MEDS: DOCUSATE SODIUM 100 MG CAP PO SCH ×2 (08:47→20:41)
[2020-01-20] MEDS ORDERED: ENOXAPARIN INJ 40 MG/0.4 ML SYR SQ SCH (09:00)
[2020-01-20] MEDS: FERROUS SULFATE 325 MG TAB PO SCH (10:27)
[2020-01-20] MEDS ORDERED: Nursing to Pharmacy Communication SCH (16:00)
[2020-01-20] MEDS ORDERED: bisacodyL 5 MG TABEC PO SCH (20:00)
[2020-01-21] MEDS: IBUPROFEN 600 MG TAB PO PRN ×3 (02:37→12:41)
--- NOTE | 2020-01-21 06:22 | Obstetrical Progress Note ---
Date of Service <Yolanda Montalvo DO - Last Filed: 01/21/20 07:25> January 21, 2020 Assessment & Plan <Yolanda Montalvo DO - Last Filed: 01/21/20 07:25> (1) Normal course: - PNL: Rh pos, RI, GBS neg, COVID neg - Eating well, voiding well, ambulating well. - Pain well controlled with ibuprofen 600mg Q4H PRN - Routine pp care -- OOB, ambulation, diet progression as tolerated - H/H 8.4/24.6 yesterday. Started on 325mg ferrous sulfate po daily. -- H/H this morning 6.9/20.4. Pt with episodic lightheadedness. Will give 2L blood transfusion w/ Benadryl and Tylenol. - After discharge will have 6 week follow-up with Dr. Ortiz. - Plan for d/c home later this afternoon after blood transfusion. (2) Factor 5 Leiden mutation, heterozygous: Lovenox x2 weeks pp as recommended by hematology. Subjective <Yolanda Montalvo DO - Last Filed: 01/21/20 07:25> Amy Schmitt is a 29 y/o female who is PPD #2 following forceps assisted vaginal delivery due to maternal exhaustion during 2nd stage of labor at 39+ weeks. She reports generally feeling well overall this morning. However, pt does not some intermittent lightheadedness and an episode of lightheadedness yesterday afternoon while walking to the nursery; the lightheadedness resolved with sitting and after eating a meal. Pt denies syncope or LOC. Some abdominal cramping and 2/10 pain at rest, 5/10 pain with ambulation, well managed on analgesics. Voiding without dysuria or difficulty. Tolerating meals overnight without nausea or vomiting. Patient has been able to ambulate some. + passing gas and - bowel movement. Has persistent lochia with some improvement this morning. Currently . Review of Systems Denies fever or chills. Denies shortness of breath or cough. Denies chest pain. Denies breast pain. Denies dysuria. Denies leg pain or leg swelling. + lightheadedness. Denies headache or changes in vision. Physical Exam <Yolanda Montalvo DO - Last Filed: 01/21/20 07:25> General: Alert, oriented. No acute distress. Cardiac: Regular rate and rhythm. No murmurs. Respiratory: Clear to auscultation bilaterally a/p, no wheezes/rales/rhonchi. No increased work of breathing. Symmetrical chest rise. No respiratory distress. Abdomen: Soft, nontender, nondistended. Bowel sounds present. Uterus: Uterine fundus firm, palpable 2 cm below umbilicus. Lower Extremities: No lower extremity edema or swelling. No deep calf pain. Louisa's negative bilaterally. Results & Data ([facility]) <Yolanda Montalvo DO - Last Filed: 01/21/20 07:25> Vital Signs (Past 12 Hours) Vital Signs Temp Pulse Resp BP Pulse Ox 01/20/20 23:30 37.1 C 111 H 18 122/78 01/20/20 19:40 36.6 C 99 H 18 117/75 99 Laboratory Results H/H at 0632 this mornin.9/20.4 <Haley Boo MD - Last Filed: 01/21/20 07:45> Co-Signing Physician Notes I have reviewed the resident's note and examined the patient myself, and agree with the note above.
[2020-01-21 06:55] LABS: Hematocrit (blood only) 20.4 % (37-47); Hemoglobin 6.9 g/dL (12.0-16.0)
[2020-01-21] MEDS ORDERED: ACETAMINOPHEN 325 MG TAB PO ONE (07:35)
[2020-01-21] MEDS ORDERED: SODIUM CHLORIDE 0.9% 250 ML IV PRN (07:35)
[2020-01-21] MEDS: DOCUSATE SODIUM 100 MG CAP PO SCH (08:53)
[2020-01-21] MEDS: PRENATAL VITAMIN 1 TAB PO SCH (08:53)
[2020-01-21] MEDS: FERROUS SULFATE 325 MG TAB PO SCH (08:53)
[2020-01-21] MEDS ORDERED: ENOXAPARIN INJ 40 MG/0.4 ML SYR SQ SCH (16:00)
--- NOTE | 2020-01-24 09:13 | Discharge Summary ---
Date of Service January 24, 2020 Admission HPI Per Admitting Provider The patient is a 29-year-old 1 para 0, EDC of 19 January, at 39+ weeks gestational age, who presents to labor and delivery with spontaneous rupture of membranes. Patient states the membranes ruptured at approximately 0900 hrs. She describes the fluid is light green. She denies contractions. The patient carries a diagnosis of heterozygous factor V Leiden mutation. She had a hematology consult this . Hematology is recommending Lovenox for approximately 2 weeks, longer if the patient has a section. Otherwise the patient has had a benign course. Her blood type is A+, antibody negative, rubella immune, hepatitis B negative, she had a negative cystic fibrosis and SMA screen, negative cell free DNA screen, normal 1 hour Glucola x2, negative third trimester beta strep culture, and a negative COVID screen on 06 January Discharge Data Consultations 01/19/20 12:21 Consult Anesthesiology Stat Procedures Performed Operation Date: 01/19/20 21:05 Actual Procedures p Labor Delivery Repair Vaginal Laceration - Gualberto Ortiz Jr, MD, [facility] Course (1) with history of infertility, antepartum: .Upon admission the patient was 3 cm dilated and grossly ruptured. On examination a fore bag was felt which was artificial initially ruptured and an intrauterine pressure catheter was placed. Because of the rupture of membranes she was started on Pitocin per induction protocol. Contractions became regular and the patient became uncomfortable. Anesthesia was consulted and an epidural was placed. The patient progressed to full dilatation and began her second stage. The patient pushed over 2 hours bringing the vertex down to a +2/+3 position in a BONG presentation. At this point the patient became exhausted and was unable to push further. Because of the significant It associated with the second stage a vacuum extraction was not felt to be possible. Verbal consent was obtained from the patient for a forcep delivery. Juanis forceps were placed atraumatic Jose, and with the next contraction the baby was delivered. The cord was clamped and cut and the baby was taken over to the resuscitation stand. Cord gases and cord blood samples were obtained. Inspection of the perineum showed a midline second-degree laceration with a right sulcus tear. A Nguyễn catheter was inserted into the bladder which remained there throughout the repair. An attempt to repair the sulcus tear was tried in the delivery room. Because of the location of the tear good visualization could not be obtained. After multiple attempts I decision was made to terminate the procedure in the delivery room and moved the patient to the OR for repair there. Estimated blood loss for this portion of the delivery 750 cc. Sponge and needle count was correct. The patient was taking back to the labor and delivery operating room. The right sulcus tear could be visualized and repaired along Under epidural anesthesia she was placed in the dorsolithotomy position, the sulcus tear could not be well visualized and it was closed with a running 2-0 Vicryl suture. Her midline laceration was also repaired with 2-0 Vicryl suture. A vaginal packing was placed, and a Nguyễn catheter was inserted into the bladder. On day #1 the vaginal packing was removed as well as the Nguyễn catheter. Her hemoglobin that day was 8.4. On the second day the patient was ambulating but was having some orthostatic changes. Repeat hemoglobin was 6.9. Because of the low hemoglobin and the symptomatology, the patient was transfused 2 units of packed red blood cells. The patient was feeling well enough after the transfusion that she was discharged home. She will follow-up in the office in 6 weeks for a check but as always she was instructed to call with any questions problems or difficulties. (2) Factor 5 Leiden mutation, heterozygous: The patient was a known heterozygous carrier for factor V Leiden mutation. She had a hematology consult during the . Hematology had recommended mended 2 weeks of Lovenox with a vaginal delivery. The patient was started on Lovenox on day #1 and instructed in its use and injection. She had previously received a prescription from hematology for the medication. Coding Level of Care Code None Diagnoses with history of infertility, antepartum O09.00 Factor 5 Leiden mutation, heterozygous D68.51
== END 2020-01-21 18:50 | disposition home or self-care (01) | DRG 806 ==
LOC: OPB 12:02 → 4S1 12:03 → 4S2 01-20 00:30

== ENCOUNTER 2022-02-19 04:17 | Inpatient (IN) ==
[2022-02-19] MEDS: LACTATED RINGER'S 1,000 ML IV PRN ×2 (04:30→06:33)
[2022-02-19] MEDS ORDERED: OXYTOCIN 30 UNITS/500 ML BAG IV PRN ×2 (04:33→10:27)
[2022-02-19] MEDS ORDERED: LIDOCAINE 1% LOCAL 20 ML VIAL INFIL PRN (04:33)
[2022-02-19] MEDS ORDERED: BUPIVACAINE 0.25% 30 ML VIAL ONE (04:51)
[2022-02-19] MEDS ORDERED: LIDOCAINE 2%/EPINEPHRINE 1:200,000 20 ML SDV ONE (04:51)
[2022-02-19] MEDS ORDERED: ePHEDrine sulfate 50 MG/ML AMP ONE (04:51)
[2022-02-19] MEDS ORDERED: fentaNYL citrate 100 MCG/2 ML VIAL ONE (04:51)
[2022-02-19] MEDS ORDERED: SODIUM CHLORIDE 0.9% INJ 10 ML VIAL ONE (04:51)
[2022-02-19] MEDS ORDERED: fentaNYL 2MCG/ML ROPIVACAINE 1.25MG/ML 100 ML BAG EPI ONE (04:52)
[2022-02-19 04:53] LABS: Hematocrit (blood only) 34.5 % (34.1-44.9); Hemoglobin 11.8 g/dl (12.0-16.0); Mean Corpuscular Hgb Conc 34.2 g/dL (32.0-36.0); Mean Corpuscular Volume 87.8 fL (80.0-100.0); Mean Platelet Volume 11.4 fL (9.4-12.3); Platelet Count 195 K/uL (130-400); Red Blood Count 3.93 M/uL (3.93-5.22); White Blood Count 9.09 K/ul (4.8-10.8)
[2022-02-19] MEDS ORDERED: ONDANSETRON INJ 2 MG/ML 2 ML VIAL IV PRN (05:12)
[2022-02-19] MEDS ORDERED: diphenhydrAMINE 50 MG/ML VIAL IV PRN (05:12)
[2022-02-19] MEDS ORDERED: fentaNYL 2MCG/ML ROPIVACAINE 1.25MG/ML 100 ML BAG EPI PRN (05:12)
[2022-02-19] MEDS ORDERED: NALOXONE HCL 0.4 MG/1 ML VIAL/CARP IV PRN (05:12)
[2022-02-19] MEDS ORDERED: NALBUPHINE HCL INJ 10 MG/ML AMP IV PRN (05:12)
[2022-02-19] MEDS ORDERED: NALOXONE HCL 1 MG in SODIUM CHLORIDE 0.9% 1000ML 1,000 ML IV PRN (05:12)
[2022-02-19] MEDS ORDERED: ePHEDrine sulfate 50 MG/ML AMP IV PRN (05:12)
--- NOTE | 2022-02-19 05:16 | Anesthesiology Consultation ---
Date of Service February 19, 2022 Assessment & Plan (1) Encounter for pre-operative examination: Chart Review Chart Review: Patient NOT seen in Pre Admission Testing and Acceptable Risk for Labor Epidural Consults Requested none History Allergies Allergy/AdvReac Type Severity Reaction Status Date / Time No Known Allergies Allergy Verified 02/13/22 11:41 Medications Home Medications Medication Instructions Recorded Confirmed Last Taken prenat.vits,dragan,[id number] 1 tab PO DAILY 06/18/19 02/13/22 01/18/20 aspirin 81 mg tablet 81 mg PO DAILY 01/19/20 02/13/22 01/18/20 cetirizine 10 mg capsule (Zyrtec) 10 mg PO DAILY 01/19/20 02/13/22 01/18/20 diphenhydramine HCl 25 mg capsule 25 mg PO ONCE 01/19/20 02/13/22 01/18/20 (Benadryl) Active Medications Generic Name Dose Route Start Last Admin Trade Name Freq PRN Reason Stop Dose Admin Lactated Ringer's 1,000 mls @ 125 mls/hr 02/19/22 04:33 02/19/22 04:30 Lr IV 02/21/22 04:32 999 mls/hr .Q8H PRN Administration L&D Protocol Protocol Past Medical History Medical History Anemia due to blood loss Encounter for screening laboratory testing for COVID-19 virus Obesity affecting , antepartum with history of infertility, antepartum Varicella Exercise / Class Metabolic Activity II 4-5 Yardwork/Stairs/Walk up hill Past Family History Family History Father Factor V Leiden Brother Factor V Leiden Grandmother (Maternal) Breast cancer Mother Breast cancer Past Anesthesia History No Hx of Anesthesia Complications and No Family Hx of Anesthesia Complications History of PONV No Hx of PONV Social History Smoking Status: Never smoker Hx Alcohol Use: No Hx Substance Use: No Physical Exam Vital Signs Last Vital Signs Temp 36.7 C 02/19/22 05:15 Pulse 74 02/19/22 05:38 Resp 18 02/19/22 05:15 BP 145/85 H 02/19/22 05:38 Pulse Ox 100 02/19/22 05:34 Testing Laboratory Results 02/19/22 04:41
[2022-02-19] MEDS ORDERED: SODIUM CHLORIDE 0.9% 250 ML IV PRN (06:26)
--- NOTE | 2022-02-19 07:39 | History & Physical Report ---
Date of Service February 19, 2022 Assessment & Plan (1) Factor 5 Leiden mutation, heterozygous: Plan: Amy is a 31-year-old currently 40 weeks 1 day gestational age presents in labor with wanting is rupture of membranes. 1. Fetus: Cat1 2. Labor: spontaneous/SROM 3. GBS negative 4. Hx Factor V: Lovenox for 6 weeks per plan. (2) Encounter for supervision of normal in multigravida, antepartum: (3) SROM (spontaneous rupture of membranes): (4) Normal labor: Admission and Anticipated Discharge Date Admission Date: February 19, 2022 History of Present Illness Primary Care Provider: NO PCP Amy is a 31-year-old currently at 40 weeks 1 day gestational age presents with spontaneous rupture of membranes and labor. complicated by heterogeneous factor 5 Leiden without history of blood clot and BMI greater than 35. OB Labs: A Blood Type A Positive 07/09/21 Antibody Screen NEGATIVE 07/09/21 Hemoglobin 12.2 g/dL (12.0-16.0) 11/28/21 Hematocrit 36.4 % (37-47) L 11/28/21 Mean Corpuscular Volume 89.1 fL (80-100) 07/09/21 Platelet Count 349 K/uL (130-400) 07/09/21 Rubella IgG Antibody Immune (Immune) 07/09/21 Rapid Plasma Reagin Nonreactive (Nonreactive) 07/09/21 Hepatitis B Surface Antigen Neg (Neg) 07/09/21 Hepatitis C Antibody Neg (Neg) 07/09/21 HIV (1&2) Ab and P24 Ag, 4th Gener Neg (Neg) 07/09/21 Glucose 1 Hour 50 gm Load 118 mg/dl (70-130) 11/28/21 Maternal Serum Alpha Fetoprotein 21.9 ng/mL 08/06/19 OB Optional Labs: Chlamydia trachomatis RNA NOT DETECTED (NOT DETECTED) 07/09/21 Neisseria gonorrhoeae RNA NOT DETECTED (NOT DETECTED) 07/09/21 Alpha Fetoprotein Triple Screen SEE NOTE 08/06/19 Labs Reviewed: CF/SMA negative (06/11/17) - results in chart. low risk panorama--akh neg afp--akh Allergies Allergy/AdvReac Type Severity Reaction Status Date / Time No Known Allergies Allergy Verified 02/13/22 11:41 Home Medications Medication Instructions Recorded Confirmed Type prenat.vits,dragan,[id number] 1 tab PO DAILY 06/18/19 02/13/22 History aspirin 81 mg tablet 81 mg PO DAILY 01/19/20 02/13/22 History cetirizine 10 mg capsule (Zyrtec) 10 mg PO DAILY 01/19/20 02/13/22 History diphenhydramine HCl 25 mg capsule 25 mg PO ONCE 01/19/20 02/13/22 History (Benadryl) Patient History Medical History Anemia due to blood loss Encounter for screening laboratory testing for COVID-19 virus Obesity affecting , antepartum with history of infertility, antepartum Varicella Family History Father Factor V Leiden Brother Factor V Leiden Grandmother (Maternal) Breast cancer Mother Breast cancer Social History (Updated 07/04/21 @ 08:59 by Vianca Garcia) Smoking Status: Never smoker Second Hand Exposure: No; Do You Dip or Chew Tobacco: No; Tobacco Cessation Education Requested by Patient: No Hx Alcohol Use: No Hx Substance Use: No Preferred Language: Ukrainian Communication Ability: Effective Geographic Information Systems Manager Required: No Beliefs That Will Affect Care: None marital status: marital status details: Maunel Schmitt (30) [phone] Current Living Situation: Spouse and Family Current Living Situation Comment: and son current occupational status: employed 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 [employer] Other Information That Helps Us Care for You: No Feels Safe at Home: Yes Safety Concerns: Feels Safe At This Time Assistive Devices: Contacts and Glasses Physical Exam Genitourinary: Manual OB Exam: + cervical dilation (4.5), + cervical effacement 80%, + station and + amniotic fluid clear OB Exam Monitor Tracing: + external FHT monitor used, + external uterine monitor used, + category I and + normal FHT variability; no early decelerations present and no variable decelerations cervical exam per nurse Results & Data ([facility]) Vital Signs (Past 12 Hours) Vital Signs Temp Pulse Resp BP Pulse Ox 02/19/22 04:49 36.7 C 18 02/19/22 07:29 69 94 09/20/22 07:28 73 130/62 02/19/22 07:24 80 94 02/19/22 07:19 79 93 02/19/22 07:14 81 93 02/19/22 07:13 74 139/71 02/19/22 07:12 95 H 94 02/19/22 07:09 73 95 02/19/22 07:07 80 94 02/19/22 07:04 78 94 02/19/22 06:59 72 93 02/19/22 06:58 72 133/65 02/19/22 06:54 76 95 02/19/22 06:49 72 94 02/19/22 06:44 71 119/65 95 02/19/22 06:43 75 94 02/19/22 06:39 72 94 02/19/22 06:36 71 94 02/19/22 06:34 65 95 02/19/22 06:29 94 02/19/22 06:29 63 02/19/22 06:30 36.7 C 69 18 93 02/19/22 06:29 73 119/56 L 02/19/22 06:24 71 95 02/19/22 06:25 72 94 02/19/22 06:19 69 95 02/19/22 06:20 73 94 02/19/22 06:14 69 96 02/19/22 06:11 79 92 02/19/22 06:09 75 96 02/19/22 06:05 81 132/76 02/19/22 06:04 80 97 02/19/22 06:01 79 133/75 02/19/22 05:59 85 97 02/19/22 05:57 81 145/89 H 02/19/22 05:54 82 98 02/19/22 05:53 72 148/88 H 02/19/22 05:49 82 98 02/19/22 05:48 77 137/85 02/19/22 05:46 72 148/101 H 02/19/22 05:44 99 02/19/22 05:44 71 02/19/22 05:44 75 149/91 H 02/19/22 05:41 67 155/106 H 02/19/22 05:39 77 97 02/19/22 05:38 74 145/85 H 02/19/22 05:34 66 100 09/22 05:30 78 91 02/19/22 05:29 75 100 02/19/22 05:15 18 02/19/22 05:15 36.7 C 18 02/19/22 05:24 67 100 02/19/22 05:21 82 90 02/19/22 05:19 79 98 02/19/22 04:37 72 145/82 H Coding Level of Care Code None Diagnoses Factor 5 Leiden mutation, heterozygous D68.51 Encounter for supervision of normal in multigravida, antepartum Z34.80 SROM (spontaneous rupture of membranes) Normal labor O80; Z37.9
--- NOTE | 2022-02-19 09:48 | Delivery Summary ---
Vaginal Delivery Summary Date of Service February 19, 2022 Vaginal Delivery Summary and 1st Degree LAC Pre-operative Diagnosis: at 40 1/7 srom labor Post-operative Diagnosis: same Procedure: epidural left labial and first degree laceration repair EBL: 400cc Anesthesia: spidural Procedure: The patient presented to labor and delivery with srom and labor. She progressed and got an epidural. She reached c/c/+2. The patient pushed for 2 contractions to deliver a viable female in glendy position. The nose and mouth were bulb suctioned on the perineum, a nuchal cord x 1 reduced and the rest of the was then delivered without difficulty. The baby was vigorous. The nose and mouth were again bulb suctioned and the infant was placed in the maternal abdomen for drying and attention. Cord was clamped and cut at one minute of life. Cord blood and segment obtained. Placenta delivered spontaneous, intact with a three vessel cord. Cervix/sulci/rectum were intact. A first degree perineal laceration and small left labial laceration were repaired in the normal standard fashion. Hemostasis obtained with dilute pitocin and fundal massage. Apgars were 8/9. Mother and baby doing well at the end of the delivery. [facility] Vaginal Delivery Charge Delivery Type Details: and 1st Degree LAC
[2022-02-19] MEDS ORDERED: DIPHTHERIA/TETANUS/PERTUSSIS 0.5 ML SYR/VIAL IM ONE (10:27)
[2022-02-19] MEDS ORDERED: BENZOCAINE 20% AER SPR 82.5 GM CAN EXT PRN (10:27)
[2022-02-19] MEDS ORDERED: oxyCODONE/ACETAMINOPHEN 5mg/325mg TAB PO PRN (10:27)
[2022-02-19] MEDS ORDERED: ACETAMINOPHEN 325 MG TAB PO PRN (10:27)
[2022-02-19] MEDS ORDERED: HYDROCORTISONE ACETATE 25 MG SUPP PR PRN (10:27)
[2022-02-19] MEDS ORDERED: bisacodyL 10 MG SUPP PR PRN (10:27)
--- NOTE | 2022-02-19 10:44 | Anesthesia Procedure Note ---
Date of Service February 19, 2022 Anesthesia Post Epidural Note Vital Signs Vital Signs: Temp Pulse Resp BP Pulse Ox 98.4 F 70 18 126/64 94 02/19/22 09:00 02/19/22 10:43 02/19/22 09:00 02/19/22 10:43 02/19/22 09:19 Pain Intensity Bilateral Abdomen: Pain Intensity: 5 Notes Mental Status: alert / awake / arousable and participated in evaluation Nausea / Vomiting: adequately controlled Pain: adequately controlled Airway Patency, RR, SpO2: stable & adequate BP & HR: stable & adequate Hydration State: stable & adequate Neuraxial Anesthesia: was administered and sensory block is resolving Anesthetic Complications: no major complications apparent and Pt Satisfied with anesthetic care Epidural: Removed without complications and With tip intact
[2022-02-19] MEDS: IBUPROFEN 600 MG TAB PO PRN ×2 (13:47→19:19)
[2022-02-19] MEDS: DOCUSATE SODIUM 100 MG CAP PO SCH (20:59)
[2022-02-20] MEDS: IBUPROFEN 600 MG TAB PO PRN (03:03)
--- NOTE | 2022-02-20 05:25 | Obstetrical Progress Note ---
Date of Service February 20, 2022 Assessment & Plan (1) Normal labor: (2) Factor 5 Leiden mutation, heterozygous: (3) Vaginal delivery: Plan - Overall, feeling well and eating well today - Infant feeding going well without concern, formula supplementation to breast feeding - Urinating and passing gas appropriately - Ambulating well around room - Pain controlled w/o medication - Routine PP care progressing very well - Patient wishes to discharge @ 24 hours if medically stable - Pt. 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 Discussed with Dr. Dos Santos and agree with findings and plan as documented in the note. Any exceptions or clarifications are listed here: Doing well. much easier delivery vs. last. Routine care. OK for 24 hr d/c from ob perspective. Will start lovenox, did after her last . 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 Instructions given. Documented By: Mitzi Mitchell MD, FACOG Subjective Today [Date]: Patient is a 31 y/o female [id number] is PPD #1 following delivery at 40w1d. Patient reports feeling excellent overall this morning and desires to go home. - Ambulation - throughout room without difficulty - Voiding/Nguyễn - voiding independently, no dysuria - Gas/Stool - passing gas, no bowel movement at this time - Diet - regular diet since last evening, no nausea or emesis - Lochia -diminishing, moderate amount - Feeding Type - breast feeding q3h, formula supplementation this AM, no concerns - Pain Level - 0/10 pain w/o pain medication Review of Systems - Denies fever, chills, sweats - Denies shortness of breath, difficulty breathing, chest pain, palpitations, chest pressure. - Denies breast pain. - Denies dysuria. - Denies headache or changes in vision. Physical Exam Physical Exam: General: Alert, oriented. No acute distress. Cardiac: RRR, normal S1/S2, no murmurs/rubs/gallops. Respiratory: Non-labored, CTAB, no wheezes/rales/rhonchi. Symmetric chest rise. Abdomen: Soft, nontender, nondistended. Bowel sounds present. Uterus: Uterine fundus firm, palpable 2 cm below umbilicus. Lower Extremities: No lower extremity edema or swelling. No deep calf pain. Louisa's negative bilaterally. Results & Data ([facility]) Vital Signs (Past 12 Hours) Vital Signs Temp Pulse Resp BP Pulse Ox O2 Del Method 02/20/22 03:05 36.7 C 69 18 120/75 Room Air 02/20/22 00:05 36.7 C 66 18 119/77 Room Air 02/19/22 19:45 36.7 C 77 20 131/75 100 Room Air Resident Activity Tracking Resident Involvement: Resident Care Provided Care Provided: OB Delivery
[2022-02-20] MEDS ORDERED: LOVENOX TEACHING KIT PRN (06:17)
[2022-02-20 06:38] LABS: Hematocrit (blood only) 31.4 % (34.1-44.9); Hemoglobin 10.7 g/dl (12.0-16.0)
[2022-02-20] MEDS ORDERED: PRENATAL VITAMIN 1 TAB PO SCH (08:00)
[2022-02-20] MEDS: DOCUSATE SODIUM 100 MG CAP PO SCH (08:03)
[2022-02-20] MEDS ORDERED: ENOXAPARIN INJ 40 MG/0.4 ML SYR SQ SCH (09:00)
[2022-02-20] MEDS ORDERED: bisacodyL 5 MG TABEC PO SCH (20:00)
== END 2022-02-20 11:38 | disposition home or self-care (01) | DRG 806 ==
LOC: OPB 04:17 → 4S1 04:20 → 4E2 13:45